=== PATIENT | female | born 1955 | race Caucasian/White ===

== ENCOUNTER 2021-09-17 16:40 | Inpatient (IN) | payer MEDICARE ==
[~2021-09-17] VITALS: Ht 154.9 cm; Wt 66.2 kg
[2021-09-17 17:53] LABS: BASOPHILS % 0.5 % (0.0-1.0); EOSINOPHILS # (AUTO) 0.4 (0.0-0.4); EOSINOPHILS % 4.5 % (0.0-6.0); HEMATOCRIT 35.8 % (34.2-44.1); HEMOGLOBIN 11.3 g/dL (12.0-16.0); LYMPHOCYTES # (AUTO) 0.8 (1.0-3.2); LYMPHOCYTES % 9.4 % (18.0-39.1); MEAN CORPUSCULAR HEMOGLOBIN 33.1 pg (28-32); MEAN CORPUSCULAR HGB CONC 31.6 g/dL (31-35); MONOCYTES # (AUTO) 0.3 (0.2-0.8); MONOCYTES % 3.5 % (4.4-11.3); NEUTROPHILS # (AUTO) 6.5 (2.1-6.9); NEUTROPHILS % 81.8 % (38.7-80.0); PLATELET COUNT 251 x10e3/uL (140-360); RED BLOOD COUNT 3.41 x10e6/uL (3.6-5.1); RED CELL DISTRIBUTION WIDTH 13.5 % (11.7-14.4)
[2021-09-17] MEDS ORDERED: HYDROCODONE/APAP 5MG-325MG TAB PO ONE (18:00)
[2021-09-17] MEDS ORDERED: ALBUTEROL SULFATE HFA 8GM INHALATION AEROSOL INH PRN (18:00)
[2021-09-17 18:14] LABS: ALBUMIN 3.3 g/dL (3.5-5.0); ANION GAP 14.1 mmol/L (8-16); CALCIUM 8.4 mg/dL (8.4-10.2); CREATININE, SERUM 0.66 mg/dL (0.57-1.11); POTASSIUM 4.1 mmol/L (3.5-5.1)
[2021-09-17] MEDS ORDERED: ALBUTEROL/IPRATROPIUM 3 ML NEB NEB ONE (18:15)
[2021-09-17 19:03] LABS: CREATINE KINASE MB 1.7 ng/mL (0-5.0)
[2021-09-17] MEDS ORDERED: ONDANSETRON HCL INJ 2MG/ML 2ML 2 MG/ML VIAL IV STA (19:23)
[2021-09-17] MEDS ORDERED: SODIUM CHLORIDE 0.9% 50ML 50 ML ONE (19:49)
[2021-09-17] MEDS ORDERED: IOPAMIDOL 370 MG/ML 200 ML INFUS..BTL INJ ONE (19:49)
[2021-09-17] MEDS: Morphine 2mg Syringe 2 MG/ML SYR IV PRN ×2 (19:55→23:58)
[2021-09-17] MEDS ORDERED: CEFTRIAXONE 1 GM in SODIUM CHLORIDE 0.9% 50ML 50 ML IV SCH (20:00)
[2021-09-17 21:19] VITALS: BP 115/64
[2021-09-17 21:30] VITALS: BP 115/64
[2021-09-17] MEDS: ALBUTEROL/IPRATROPIUM 3 ML NEB NEB SCH (23:55)
[2021-09-18] VITALS (7 sets, daily range): BP systolic 99–118; BP diastolic 53–73
[2021-09-18] MEDS: Morphine 2mg Syringe 2 MG/ML SYR IV PRN ×4 (02:59→20:20)
[2021-09-18] MEDS: ALBUTEROL/IPRATROPIUM 3 ML NEB NEB SCH ×6 (03:33→23:09)
[2021-09-18 06:06] LABS: BASOPHILS % 0.2 % (0.0-1.0); HEMATOCRIT 34.3 % (34.2-44.1); HEMOGLOBIN 10.8 g/dL (12.0-16.0); LYMPHOCYTES # (AUTO) 0.6 (1.0-3.2); LYMPHOCYTES % 9.3 % (18.0-39.1); MEAN CORPUSCULAR HEMOGLOBIN 32.3 pg (28-32); MEAN CORPUSCULAR HGB CONC 31.5 g/dL (31-35); MEAN CORPUSCULAR VOLUME 102.7 fL (81-99); MONOCYTES # (AUTO) 0.4 (0.2-0.8); MONOCYTES % 6.8 % (4.4-11.3); NEUTROPHILS % 82.9 % (38.7-80.0); PLATELET COUNT 270 x10e3/uL (140-360); RED BLOOD COUNT 3.34 x10e6/uL (3.6-5.1); RED CELL DISTRIBUTION WIDTH 13.2 % (11.7-14.4)
[2021-09-18 07:24] LABS: ANION GAP 14.5 mmol/L (8-16); CALCIUM 8.3 mg/dL (8.4-10.2); CREATININE, SERUM 0.59 mg/dL (0.57-1.11); POTASSIUM 4.5 mmol/L (3.5-5.1)
[2021-09-18] MEDS ORDERED: MAGNESIUM HYDROXIDE 30 ML UDC PO PRN (09:30)
[2021-09-18] MEDS ORDERED: HYDROCODONE/APAP 7.5MG-325MG 1 EA TAB PO PRN (09:30)
[2021-09-18] MEDS ORDERED: ACETAMINOPHEN 325 MG TAB PO PRN (09:30)
[2021-09-18] MEDS: METHYLPREDNISOLONE SOD SUCC 40 MG/ML VIAL 1ML IV SCH ×2 (10:30→21:00)
[2021-09-18] MEDS: SENNA-S TABLET PO SCH ×2 (10:30→16:21)
[2021-09-18 10:32] LABS: INR 1.06; PROTHROMBIN TIME 14.7 seconds (11.9-14.5)
[2021-09-18] MEDS ORDERED: Morphine 2mg Syringe 2 MG/ML SYR ONE (11:54)
[2021-09-18] MEDS ORDERED: LIPITOR20 MG PO (12:14)
[2021-09-18] MEDS ORDERED: IBUPROFEN200 MG PO (12:14)
[2021-09-18] MEDS ORDERED: ALPRAZOLAM1 MG PO (12:14)
[2021-09-18] MEDS ORDERED: HYDROCODON-ACE1 EAC9 PO (12:14)
[2021-09-18] MEDS ORDERED: NEURONTIN400 MG PO (12:14)
[2021-09-18] MEDS ORDERED: OMEPRAZOLE40 MG PO (12:14)
[2021-09-18] MEDS ORDERED: CYMBALTA20 MG PO (12:14)
[2021-09-18] MEDS ORDERED: TRAZODONE HCL50 MG PO (12:14)
[2021-09-18] MEDS ORDERED: GADOBENATE DIMEGLUMINE 1 ML IV ONE (12:21)
[2021-09-18 13:54] LABS: CREATINE KINASE MB 0.9 ng/mL (0-5.0)
[2021-09-18 14:29] LABS: BODY FLUID APPEARANCE TURBID; BODY FLUID COLOR RED; BODY FLUID TYPE PLEURAL
[2021-09-18] MEDS: ALPRAZOLAM 1 MG TAB PO SCH (14:40)
[2021-09-18 14:42] LABS: RBC,BODY FLUID 31500 cells/uL; WBC,BODY FLUID 1599 cells/uL
[2021-09-18 15:41] LABS: EOSINOPHILS,BODY FLUID 2 %; LYMPHOCYTES,BODY FLUID 40 %; MONO/MACROPHG,BODY FLUID 10 %; NEUTROPHILS,BODY FLUID 40 %; OTHER CELLS,BODY FLUID 8 %
[2021-09-18] MEDS: AZITHROMYCIN 250 MG TAB PO SCH (19:50)
[2021-09-18] MEDS: CEFTRIAXONE 1 GM in SODIUM CHLORIDE 0.9% 50ML 50 ML IV SCH (20:00)
[2021-09-18] MEDS ORDERED: SODIUM CHLORIDE 0.9% 250ML 250 ML ONE (20:23)
[2021-09-18] MEDS ORDERED: IOPAMIDOL 370 MG/ML 200 ML INFUS..BTL INJ ONE (20:26)
[2021-09-18] MEDS ORDERED: SODIUM CHLORIDE 0.9% 50ML 50 ML ONE (20:26)
[2021-09-19] VITALS (9 sets, daily range): BP systolic 104–136; BP diastolic 50–88
[2021-09-19] MEDS: Morphine 2mg Syringe 2 MG/ML SYR IV PRN ×5 (00:30→21:30)
[2021-09-19] MEDS: ALBUTEROL/IPRATROPIUM 3 ML NEB NEB SCH ×5 (02:53→23:00)
[2021-09-19 05:01] LABS: EOSINOPHILS % 0.1 % (0.0-6.0); HEMATOCRIT 32.3 % (34.2-44.1); HEMOGLOBIN 9.8 g/dL (12.0-16.0); LYMPHOCYTES # (AUTO) 0.7 (1.0-3.2); MEAN CORPUSCULAR HEMOGLOBIN 32.2 pg (28-32); MEAN CORPUSCULAR HGB CONC 30.3 g/dL (31-35); MEAN CORPUSCULAR VOLUME 106.3 fL (81-99); MONOCYTES # (AUTO) 0.3 (0.2-0.8); MONOCYTES % 4.9 % (4.4-11.3); NEUTROPHILS # (AUTO) 5.8 (2.1-6.9); NEUTROPHILS % 84.6 % (38.7-80.0); PLATELET COUNT 214 x10e3/uL (140-360); RED BLOOD COUNT 3.04 x10e6/uL (3.6-5.1); RED CELL DISTRIBUTION WIDTH 13.4 % (11.7-14.4)
[2021-09-19 05:25] LABS: ANION GAP 13.6 mmol/L (8-16); CALCIUM 8.7 mg/dL (8.4-10.2); CREATININE, SERUM 0.63 mg/dL (0.57-1.11); POTASSIUM 4.6 mmol/L (3.5-5.1)
[2021-09-19] MEDS: SENNA-S TABLET PO SCH ×2 (08:50→17:25)
[2021-09-19] MEDS: ALPRAZOLAM 1 MG TAB PO SCH (08:50)
[2021-09-19] MEDS: METHYLPREDNISOLONE SOD SUCC 40 MG/ML VIAL 1ML IV SCH ×2 (08:50→20:05)
[2021-09-19] MEDS ORDERED: ALPRAZOLAM 1 MG TAB PO SCH (09:00)
[2021-09-19] MEDS: PANTOPRAZOLE SOD 40 MG TABEC PO SCH (12:37)
[2021-09-19] MEDS: DULOXETINE HCL 30 MG DELAYED RELEASE PO SCH (12:37)
[2021-09-19] MEDS: BENZONATATE 100 MG CAP PO PRN (15:17)
[2021-09-19] MEDS: ENOXAPARIN SOD INJ 40 MG/0.4 ML SYR SC SCH (17:25)
[2021-09-19] MEDS: TRAZODONE HCL 50 MG TAB PO SCH (20:05)
[2021-09-19] MEDS: ATORVASTATIN 40 MG TAB PO SCH (20:05)
[2021-09-19] MEDS: CEFTRIAXONE 1 GM in SODIUM CHLORIDE 0.9% 50ML 50 ML IV SCH (20:05)
[2021-09-19] MEDS: AZITHROMYCIN 250 MG TAB PO SCH (20:05)
[2021-09-19] MEDS: HYDROCODONE/APAP 10MG-325MG TAB PO PRN (20:15)
[2021-09-19] MEDS ORDERED: DIPHENHYDRAMINE HCL 25 MG CAP PO ONE (20:30)
[2021-09-20] VITALS (8 sets, daily range): BP systolic 111–127; BP diastolic 56–66
[2021-09-20] MEDS: ALBUTEROL/IPRATROPIUM 3 ML NEB NEB SCH ×6 (03:10→23:00)
[2021-09-20] MEDS: Morphine 2mg Syringe 2 MG/ML SYR IV PRN ×5 (03:20→20:15)
[2021-09-20 05:03] LABS: HEMATOCRIT 31.6 % (34.2-44.1); HEMOGLOBIN 9.8 g/dL (12.0-16.0); LYMPHOCYTES # (AUTO) 0.9 (1.0-3.2); MEAN CORPUSCULAR HEMOGLOBIN 32.3 pg (28-32); MEAN CORPUSCULAR VOLUME 104.3 fL (81-99); MONOCYTES # (AUTO) 0.2 (0.2-0.8); MONOCYTES % 4.2 % (4.4-11.3); NEUTROPHILS # (AUTO) 4.6 (2.1-6.9); NEUTROPHILS % 79.5 % (38.7-80.0); PLATELET COUNT 294 x10e3/uL (140-360); RED BLOOD COUNT 3.03 x10e6/uL (3.6-5.1); RED CELL DISTRIBUTION WIDTH 13.2 % (11.7-14.4)
[2021-09-20 05:29] LABS: ANION GAP 11.4 mmol/L (8-16); CALCIUM 8.6 mg/dL (8.4-10.2); CREATININE, SERUM 0.65 mg/dL (0.57-1.11); POTASSIUM 4.4 mmol/L (3.5-5.1)
[2021-09-20] MEDS: SENNA-S TABLET PO SCH ×2 (08:42→16:16)
[2021-09-20] MEDS: DULOXETINE HCL 30 MG DELAYED RELEASE PO SCH (08:42)
[2021-09-20] MEDS: ALPRAZOLAM 1 MG TAB PO SCH (08:42)
[2021-09-20] MEDS: PANTOPRAZOLE SOD 40 MG TABEC PO SCH (08:42)
[2021-09-20] MEDS: BENZONATATE 100 MG CAP PO PRN ×2 (08:45→19:47)
[2021-09-20] MEDS: HYDROCODONE/APAP 10MG-325MG TAB PO PRN (11:21)
[2021-09-20] MEDS: ENOXAPARIN SOD INJ 40 MG/0.4 ML SYR SC SCH (16:16)
[2021-09-20] MEDS: AZITHROMYCIN 250 MG TAB PO SCH (19:47)
[2021-09-20] MEDS: CEFTRIAXONE 1 GM in SODIUM CHLORIDE 0.9% 50ML 50 ML IV SCH (19:47)
[2021-09-20] MEDS: TRAZODONE HCL 50 MG TAB PO SCH (20:21)
[2021-09-20] MEDS: ATORVASTATIN 40 MG TAB PO SCH (20:21)
[2021-09-21] VITALS (8 sets, daily range): BP systolic 117–148; BP diastolic 59–66
[2021-09-21] MEDS: Morphine 2mg Syringe 2 MG/ML SYR IV PRN ×6 (00:15→20:25)
[2021-09-21] MEDS: ALBUTEROL/IPRATROPIUM 3 ML NEB NEB SCH ×6 (02:28→23:00)
[2021-09-21] MEDS: BENZONATATE 100 MG CAP PO PRN ×2 (04:20→08:14)
[2021-09-21] MEDS: SENNA-S TABLET PO SCH ×2 (08:13→16:22)
[2021-09-21] MEDS: PANTOPRAZOLE SOD 40 MG TABEC PO SCH (08:13)
[2021-09-21] MEDS: DULOXETINE HCL 30 MG DELAYED RELEASE PO SCH (08:13)
[2021-09-21] MEDS: ALPRAZOLAM 1 MG TAB PO SCH (08:13)
[2021-09-21] MEDS: ENOXAPARIN SOD INJ 40 MG/0.4 ML SYR SC SCH (16:22)
[2021-09-21] MEDS: AZITHROMYCIN 250 MG TAB PO SCH (20:25)
[2021-09-21] MEDS: ATORVASTATIN 40 MG TAB PO SCH (20:25)
[2021-09-21] MEDS: CEFTRIAXONE 1 GM in SODIUM CHLORIDE 0.9% 50ML 50 ML IV SCH (20:25)
[2021-09-21] MEDS: TRAZODONE HCL 50 MG TAB PO SCH (20:35)
[2021-09-22] VITALS: BP 96/60
[2021-09-22] MEDS: Morphine 2mg Syringe 2 MG/ML SYR IV PRN ×3 (00:34→08:30)
[2021-09-22] MEDS: ALBUTEROL/IPRATROPIUM 3 ML NEB NEB SCH ×2 (03:00→07:00)
[2021-09-22 04:00] VITALS: BP 126/52
[2021-09-22] MEDS: PANTOPRAZOLE SOD 40 MG TABEC PO SCH (07:30)
[2021-09-22 07:54] VITALS: BP 122/57
[2021-09-22 08:00] VITALS: BP 122/57
[2021-09-22] MEDS: ALPRAZOLAM 1 MG TAB PO SCH (09:00)
[2021-09-22] MEDS: DULOXETINE HCL 30 MG DELAYED RELEASE PO SCH (09:00)
[2021-09-22] MEDS: SENNA-S TABLET PO SCH (09:00)
[2021-09-22] MEDS ORDERED: DOXYCYCLINE HY100 MG PO (10:26)
[2021-09-22] MEDS ORDERED: TESSALON PERLE100 MG PO (10:27)
[2021-09-22] MEDS ORDERED: DUONEB NEB (10:29)
[2021-09-22] MEDS ORDERED: PROAIR HFA INH8.5 GM NEB (10:30)
[2021-09-22] MEDS ORDERED: NEBULIZER NEB (10:30)
[2021-09-22] MEDS: HYDROCODONE/APAP 10MG-325MG TAB PO PRN (10:56)
== END 2021-09-22 11:52 | disposition home or self-care (01) | DRG 190 ==
LOC: ER 16:47 → ERHOLD 19:31 → MED/SURG2 21:02
PROVIDERS: ADMIT Internal Medicine; ATTEND Internal Medicine
PROC: 0W9B3ZZ Drainage of Left Pleural Cavity, Percutaneous Approach (ICD-10-PCS; principal; 2021-09-18)
DX: J44.0 Chronic obstructive pulmonary disease with (acute) lower respiratory infection (principal); J18.9 Pneumonia, unspecified organism; J91.8 Pleural effusion in other conditions classified elsewhere; J44.1 Chronic obstructive pulmonary disease with (acute) exacerbation; R09.02 Hypoxemia; Z88.1 Allergy status to other antibiotic agents; Z88.2 Allergy status to sulfonamides; Z88.8 Allergy status to other drugs, medicaments and biological substances; R91.8 Other nonspecific abnormal finding of lung field; F17.210 Nicotine dependence, cigarettes, uncomplicated; I25.10 Atherosclerotic heart disease of native coronary artery without angina pectoris; Z80.9 Family history of malignant neoplasm, unspecified; R91.1 Solitary pulmonary nodule; R06.89 Other abnormalities of breathing; Z99.81 Dependence on supplemental oxygen; F41.0 Panic disorder [episodic paroxysmal anxiety]
CPT/HCPCS: 32555; 36415; 70553; 71045; 71260; 74177; 74470; 80048; 80053; 82040; 82378; 82550; 82553; 82945; 83605; 83615; 83880; 84157; 84484; 85025; 85610; 87040; 87070; 87205; 88112; 88305; 89051; 93005; 93306; 94640; 94799; 97139; 99285; J0456; J0696; J1650; J2270; J2405; J2920; J7050; Q9967; U0002